=== PATIENT | male | born 1935 | race Caucasian/White ===

== ENCOUNTER 2018-08-29 12:12 | Emergency (ER) | payer SELFPAY ==
[~2018-08-29] VITALS: Ht 170.2 cm; Wt 59.0 kg
[~2018-08-29 12:12] MED LIST: CHERATUSSIN AC 15 ML PO
[2018-08-29 12:21] VITALS: Ht 170.2 cm; Wt 59.0 kg
[2018-08-29 14:38] VITALS: BP 164/73
== END 2018-08-29 14:38 | disposition home or self-care (01) ==
LOC: ED 12:12
DX: L89.019 Pressure ulcer of right elbow, unspecified stage (principal); I10 Essential (primary) hypertension
CPT/HCPCS: 90715; Q0092

== ENCOUNTER 2018-12-07 19:42 | Inpatient (IN) | payer MEDICAID ==
[~2018-12-07] VITALS: Ht 172.7 cm; Wt 45.8 kg
[2018-12-07 20:09] VITALS: Ht 172.7 cm; Wt 45.8 kg
--- NOTE | 2018-12-07 20:12 | NUR ---
PT BIB [facility] FOR EVAL OF DIARRHEA, ANOREXIA AND INCREASED ALOC X2 DAYS, PER MEDIC REPORT; ON ARRIVAL, PT AWAKE, GCS 13 (E4 V4 M5), PERRL, RESP E/U, ABDOMEN SOFT/NONTENDER/NONDISTENDED, SKIN WARM, DRY-APPEARING, R ELBOW ABRASION NOTED. VSS ON CM AND PULSE OX. STRAIGHT CATHED FOR URINE, 20 ML CLOUDY YELLOW OUTPUT. PT'S SON PRESENT ON ARRIVAL AND IS A POOR HISTORIAN UNABLE TO DESCRIBE PT'S MEDICAL HX OR BASELINE. STS PT HAS BEEN UNABLE TO TALK X4 MONTHS. STS PT LIVES WITH DAUGHTER. PER MEDIC, PT TAKING UNKNOWN ABX FOR R ELBOW ABRASION.
--- NOTE | 2018-12-07 20:31 | NUR ---
DR CARREON AT BEDSIDE FOR MSE
--- NOTE | 2018-12-07 20:53 | NUR ---
LAB AT BED SIDE. PT VITAL SIGNS STABLE. RESPIRATIONS EVEN AND UNLABORED. NO ACUTE DISTRESS NOTED.
[2018-12-07 21:07] LABS: microscopic required? YES; urine erythrocyte TRACE (NEGATIVE)
[2018-12-07 21:10] LABS: BASOPHIL % 0.5 % (0-2); PLATELET COUNT 152 x10^3mcL (130-400); RED CELL DISTRIBUTION WIDTH 14.2 % (11.5-14.5)
[2018-12-07 21:22] LABS: CALCIUM 7.6 mg/dL (8.5-10.1); CARBON DIOXIDE 26.6 mmol/L (21-32); CHLORIDE SERUM 107 mmol/L (98-107); CREATININE SERUM 0.7 mg/dL (0.7-1.3); GLUCOSE SERUM 88 mg/dL (74-106); POTASSIUM SERUM 3.7 mmol/L (3.5-5.1); SODIUM SERUM 142 mmol/L (136-145)
[2018-12-07 21:26] LABS: ALKALINE PHOSPHATASE 96 U/L (46-116); ALT/SGPT 18 U/L (16-63); AST/SGOT 15 U/L (15-37); BILIRUBIN TOTAL 0.3 mg/dL (0.20-1.00)
[2018-12-07 21:28] LABS: ALBUMIN 2.3 g/dL (3.4-5.0); TOTAL PROTEIN, SERUM 5.8 g/dL (6.4-8.2)
--- NOTE | 2018-12-07 22:24 | NUR ---
PT AWAKE AND SPEAKING INCOHERENTLY. VITAL SIGNS STABLE. RESPIRATIONS EVEN AND UNLABORED. NO ACUTE DISTRESS NOTED. FAMILY AT BEDISDE.
--- NOTE | 2018-12-07 23:43 | NUR ---
REPORT GIVEN TO BARBARA ON MST FOR CONTIUNATION OF CARE.
[2018-12-08 00:21] VITALS: BP 145/78
--- NOTE | 2018-12-08 00:36 | NUR ---
RECEIVED FROM ER, TRANSPORTED VIA [facility]. AWAKE, TRACTS, MOSTLY NONVERBAL. SPEECH IS INCOMPREHENSIBLE. BREATHING UNLABORED. LUNG SOUNDS DIMINISHED TO BASES. APPEARS THIN. SKIN ALTERATIONS PHOTODOCUMENTED, WOUNDS TO RIGHT ELBOW, SLIGHT BLEEDING NOTED TO WOUND. SWAB OF WOUND DONE ORDERED. PLACED ON AIR MATTRESS. HOB ELEVATED 30 DEG. SALINE LOCK TO LEFT FOREARM. DAUGHTER ACCOMPANIED PT ON ADMISSION TO UNIT. ADMISSION HISTORY AND ASSESSMENT DONE. ENDORSED TO NURSE JIMENEZ.
--- NOTE | 2018-12-08 02:00 | NUR ---
PT RESTING COMFORTABLY IN BED. NO ACUTE DISTRESS NOTED. EVEN AND UNLABORED RESPIRATIONS ON RA. MEDSURG PT. IV PATENT AND INTACT RUNNING FLUIDS PER EMAR. WOUNDS TO R ELBOW CLEANED, THERAHONEY APPLIED AND DRESSED PER ORDER, CDI. PT INCONTINENT WITH BLOOD TINGED URINE NOTED, CLEANED PT AND CHANGED GOWN WITH ENGRAVER PANTOGRAPH. PT IN SEMIFETAL POSITION ON LEFT SIDE. PILLOWS APPLIED BETWEEN BLE AND R ELBOW. WILL TURN PT Q2HRS AND NEEDED. BED IN LOWEST POSITION. SIDE RAILS UPX2. CALL LIGHT WITHIN REACH. WILL CONTINUE TO MONITOR.
[2018-12-08 02:56] LABS: CHOLESTEROL/HDL RATIO 3.7; PHOSPHOROUS 2.7 mg/dL (2.5-4.9)
[2018-12-08 03:06] LABS: FREE T4 1.13 ng/dL (0.76-1.46); FREE THYROXINE INDEX 1.9 ug/dL (1.4-4.5); T4(THYROXINE) 5.5 ug/dL (4.7-13.3)
[2018-12-08 03:25] LABS: T3 TOTAL 0.7 ng/mL
[2018-12-08 05:39] VITALS: BP 129/67
[2018-12-08 06:22] LABS: BASOPHIL % 0.2 % (0-2); PLATELET COUNT 139 x10^3mcL (130-400); RED CELL DISTRIBUTION WIDTH 13.9 % (11.5-14.5)
--- NOTE | 2018-12-08 06:29 | NUR ---
PT SLEPT COMFORTABLY IN INTERVALS THROUGHOUT THE SHIFT. NO ACUTE CHANGES NOTED. ALL NEEDS TENDED TO AND MET. ALL SCHEDULED MEDICATIONS GIVEN. WOUND CARE TO RIGHT ELBOW DONE. IV PATENT AND INTACT RUNNING FLUIDS PER EMAR. BED IN LOWEST POSITION. AIR MATTRESS IN USE. SIDE RAILS UPX2. CALL LIGHT WITHIN REACH. WILL ENDORSE TO ONCOMING SHIFT.
[2018-12-08 06:45] LABS: CALCIUM 7.4 mg/dL (8.5-10.1); CARBON DIOXIDE 27.4 mmol/L (21-32); CHLORIDE SERUM 107 mmol/L (98-107); CREATININE SERUM 0.6 mg/dL (0.7-1.3); GLUCOSE SERUM 64 mg/dL (74-106); MAGNESIUM 1.9 mg/dL (1.8-2.4); PHOSPHOROUS 2.5 mg/dL (2.5-4.9); POTASSIUM SERUM 3.9 mmol/L (3.5-5.1); SODIUM SERUM 142 mmol/L (136-145)
--- NOTE | 2018-12-08 07:18 | NUR ---
RECIEVED PT FROM FUND ACCOUNTING MANAGER NURSE. PT IN BED SLEEPING, AROUSABLE, RESP E/U ON RA. NO SIGNS OF ACUTE DISTRESS NOTED AT THIS TIME. IV TO LFA W/ NO SIGNS OF INFILTRATION, IVF INFUSING WELL. DRESSING TO RUE CDI. BED IN LOWEST POSITION AND CALL LIGHT WITHIN REACH. WILL CONTINUE TO MONITOR.
[2018-12-08 08:20] VITALS: BP 128/66
--- NOTE | 2018-12-08 11:26 | NUR ---
WOUND CARE EVALUATION NOTE: REASON FOR EVALUATION: LOW JESSICA SCORE AND RIGHT ELBOW WOUND SKIN ASSESSMENT DONE WITH PRIMARY RN WITH THIS 83 Y/O MALE PT ADMITTED TO [facility] [place] WITH INITIAL DX AMS. PAST MEDICAL HX INCLUDES HTN, DM. ALL ABOVE INFORMATION OBTAINED FROM ADMISSION H&P. AND DAUGHTER, MARTIN, WHO IS AAX4. PT ADMITTED WITH PRESSURE ULCER TO RIGHT ELBOW AND RIGHT LATERAL HEEL. PT IS AWAKE. SKIN IS WARM AND DRY, BILATERAL UPPER EXTREMITIES CONTRACTURES WITH LIMITED ROM. BLE FEW HAIR GROWTH, NO EDEMA. DORSAL PEDAL PULSES PRESENT AND NORMAL. CAPILLARY REFILLED < 2 SEC. X 10 TOES. INCONTINENT OF BOWEL AND BLADDER. PLAN OF CARE AND WOUND CARE TEACHING TO DAUGHTER, SHE VERBALIZES UNDERSTANDING. POC DISCUSSED WITH PRIMARY RN INTEGUMENTARY: -RIGHT FOREARM DRY MULTIPLE DRY SCABS WITH LARGEST TOWARD AC AREA 1.5X1.5CM 0.5CM INDURATION -PRESSURE ULCER UN-STAGEABLE TO RIGHT ELBOW, 2X2CM DEPTH UTD, WOUND BED 100% YELLOW SLOUGH COVERED, MOIST, NO ODOR, SURROUNDING REDNESS INDICATED FURTHER DAMAGE, [place] WOUND SKIN DRY SCALY WITH DRY SCABS -PRESSURE ULCER DTI TO RIGHT LATERAL HEEL 0.5X1.5CM 100% MAROON COLOR, PERIWOUND SKIN DRY AND SCALY -OLD HEALED SCAR TO RIGHT BUTTOCK/ISCHIUM -BLANCHABLE REDNESS TO SCAPULAS, HIPS AND SACROCOCCYX RECOMMENDATIONS: -KEEP SKIN DRY AND CLEAN AT ALL TIMES, PLEASE CHECK Q2H AND PRN FOR INCONTINENCY OF BOWEL AND BLADDER. - CLEANSE RIGHT ELBOW WITH WOUND CLEANSING SOLUTION AND APPLY THERAHONEY COVER WITH DRY DRESSING QD AND PRN IF SOILING -APPLY FORM DRESSING TO RIGHT LATERAL HEEL, SCAPULAS, HIPS AND SACROCOCCYX Q7 DAYS AND PRN IF SOILING PREVENTION -APPLY HEEL RAISER TO RIGHT HEEL AT ALL TIMES -OFFLOAD BILATERAL HEELS BY PLACING PILLOWS UNDER CALVES UNLESS OTHERWISE CONTRAINDICATED -PRESSURE REDISTRIBUTION SURFACE THERAPY -TURN AND REPOSITION Q2H, OFFLOAD RIGHT ELBOW, SACRALCOCCYX AND HIPS BY TURNING RIGHT AND LEFT -CONTINUE TO FOLLOW RD RECOMMENDATIONS ALL ABOVE RECOMMENDATIONS DISCUSSED WITH PRIMARY RN. WILL FOLLOW UP PT Q7-10 DAYS. PLEASE CONTACT WOUND CARE NURSE FOR ANY QUESTION AND CHANGE OF WOUND CONDITION.
[2018-12-08 11:44] VITALS: BP 126/69
--- NOTE | 2018-12-08 12:55 | NUR ---
PT IN BED SLEEPING, AROUSABLE, RESP E/U ON RA. NO SIGNS OF ACUTE DISTRESS NOTED. BED IN LOWEST POSITION AND CALL LIGHT WITHIN REACH. WILL CONTINUE TO MONITOR.
--- NOTE | 2018-12-08 14:38 | NUR ---
Discount pharmacy card and list to low cost medical clinics given to patient by Lisa Mathews.
[2018-12-08 15:53] VITALS: BP 146/66
--- NOTE | 2018-12-08 15:54 | NUR ---
PT WAS SEEN FOR DYSPHAGIA. PT WAS ABLE TO SAFELY SWALLOW PUREE DIET WITH HONEY THICK LIQUID. PT HAD COUGH FOR THIN LIQUID. RECOMMENDATION PUREE DIET WITH HONEY THICK LIQUID SMALL BITES AND SIPS ONLY. 1:1 SUPERVISION.
--- NOTE | 2018-12-08 17:35 | NUR ---
PT RESTING IN BED, RESP E/U ON RA. NO ACUTE DISTRESS OBSERVED AT THIS TIME. IV TO RFA W/ NO SIGNS OF INFILTRATION, IVF INFUSING WELL. DRESSING TO R ELBOW CDI, AIR MATTRESS IN PLACE. BED IN LOWEST POSITION AND CALL LIGHT WITHIN REACH. WILL ENDORSE TO ONCOMING NURSE.
--- NOTE | 2018-12-08 19:10 | NUR ---
RECIEVED PT FROM PREVIOUS SHIFT NURSE. PT AOX4
--- NOTE | 2018-12-08 19:10 | NUR ---
RECEIVED PT FROM PREVIOUS SHIFT NURSE. PT NONVERBAL, UNABLE TO FOLLOW COMMANDS. MED SURG PT, DENIES CP/PRESSURE. LUNG SOUNDS DIMINISHED, NO SOB/DIFFICULTY BREATHING NOTED. WOUNDS TO R. ELBOW, DSG CDI, SCAB TO RFA, BLIND HANGER, SCAB TO R. HEEL. IV TO LFA, INTACT AND PATENT. BED IN LOWEST POSITION. CALL LIGHT WITHIN REACH. WILL CONTINUE TO MONITOR.
[2018-12-08 19:24] VITALS: BP 137/64
[2018-12-08 23:46] LABS: BASOPHIL % 0.7 % (0-2); PLATELET COUNT 136 x10^3mcL (130-400); RED CELL DISTRIBUTION WIDTH 14.1 % (11.5-14.5)
[2018-12-08 23:47] LABS: CALCIUM 7.8 mg/dL (8.5-10.1); CARBON DIOXIDE 26.4 mmol/L (21-32); CHLORIDE SERUM 105 mmol/L (98-107); CREATININE SERUM 0.6 mg/dL (0.7-1.3); GLUCOSE SERUM 114 mg/dL (74-106); POTASSIUM SERUM 3.9 mmol/L (3.5-5.1); SODIUM SERUM 139 mmol/L (136-145)
--- NOTE | 2018-12-09 01:11 | NUR ---
PT RESTING IN BED. RR EVEN AND UNLABORED. IN NO ACUTE DISTRESS. CALL LIGHT WITHIN REACH. BED IN LOWEST POSITION. WILL CONTINUE TO MONITOR.
[2018-12-09 06:28] VITALS: BP 130/52
--- NOTE | 2018-12-09 07:30 | NUR ---
PATIENT AWAKE BUT LETHARGIC; NON VERBAL. NO INDICATION OF PAIN, NAUSEA/VOMITING OR SHORTNESS OF BREATH. IVF D5 1/2 NS AT 75 CC/HR VIA IV SITE AT [facility]. TOTAL CARE PROVIDED TO THE PATIENT. CALL LIGHT WITHIN REACH. SIDE RAILS UP X3. BED IS AT LOWEST POSITION. ALARM IS ON. ISOGEL MATTRESS IN PLACE.
[2018-12-09 08:17] VITALS: BP 137/61
--- NOTE | 2018-12-09 10:15 | NUR ---
DR. WALKER AND THE TEAM WERE MAKING ROUND TO SEE THE PATIENT.
[2018-12-09 11:11] LABS: BASOPHIL % 0.3 % (0-2); PLATELET COUNT 140 x10^3mcL (130-400); RED CELL DISTRIBUTION WIDTH 14.1 % (11.5-14.5)
[2018-12-09 11:22] LABS: CALCIUM 8.1 mg/dL (8.5-10.1); CARBON DIOXIDE 30.9 mmol/L (21-32); CHLORIDE SERUM 106 mmol/L (98-107); CREATININE SERUM 0.7 mg/dL (0.7-1.3); GLUCOSE SERUM 112 mg/dL (74-106); POTASSIUM SERUM 3.5 mmol/L (3.5-5.1); SODIUM SERUM 142 mmol/L (136-145)
--- NOTE | 2018-12-09 13:47 | NUR ---
Initial Nutrition Assessment: 243/A RAFI GARECS HR Dx: general weakness, UTI PMHx: Arthritis PSHx: None Labs: BG 114H, WBC 4.2L Meds: Rocephin, zofran Diet: Puree with honey thick liquid PO Intake: not documented Ht: 172.72 cm (68") Wt: 45.8 kg (101#) BMI: 15.4 kg/m2 (underweight) Bed scale: 45.6 kg IBW: 154# (70 kg) %IBW: 66 UBW: unable to access Age: 83/M Food Allergies: NKFA Skin: R elbow wound w/ dressing, scabs to RUE Jordan: 13 Edema: none GI: diarrhea Last BM: 12/08 Per H&P, Pt is a 83 yoM with no significant PMH who came with a cc of "not eating" since 3 days. Pt has a history progressive neurological decline. RDN Visit (12/09): Patient was not alert and was not in a state to answer any questions, was lethargic. Per LELO Valencia, pt ate 40% breakfast this morning and does not have any N/V/D/C at this time. FNS received consult for 'severe malnutrition' on 12/08 Problem with: N/V/D/C: none per LELO Valencia Problems with: Chewing/Swallowing: on puree diet Current appetite: unable to access Recent wt change: unable to access %wt change: n/a Vitamin/Supplement use: unable to access Special diet at home: unable to access Physical activity: unable to access Nutrition education given: not possible at this time Food-drug interactions: none Education given: n/a Estimated Nutritional Needs Based on actual body weight 45.8 kg Energy: 4332-8147 kcal/d (35-40 kcal/kg) Protein: 55-64 g/d (1.2-1.4 g/kg) - preserve LBM Fluid: 7549-4340 ml/d (1 ml/kcal) or per doctor Nutrition Diagnosis 1. Malnutrition related to poor PO as evidenced by BMI 15.4 kg/m2 2. Inadequate oral intake related to possible poor appetite as evidenced by PO <75% per RN. Intervention 1. Puree diet with honey thick liquid. 2. Recommend Ensure Pudding BID. Discussed recommendations with Dr. Cristhian Foster. Monitor/Evaluate Goal: PO intake at least 75% of estimated needs Monitor: PO intake, Labs, GI function F/U in 2-3 days as high risk
--- NOTE | 2018-12-09 13:48 | NUR ---
1. Puree diet with honey thick liquid. 2. Recommend Ensure Pudding BID. Discussed recommendations with Dr. Cristhian Foster.
[2018-12-09 17:02] VITALS: BP 140/72
--- NOTE | 2018-12-09 17:47 | NUR ---
PATIENT WAS GIVEN A BED BATH. LINEN AND GOWN CHANGED. OPTIFOAM APPLIED TO SACRAL AREA FOR PROPHYLAXIS. THE WOUNDS TO RIGHT ELBOW WERE CLEANSED WITH WOUND CLEANSER, PATTED DRY; THERAHONEY APPLIED BEFORE NEW OPTIFOAM APPLIED.
--- NOTE | 2018-12-09 17:50 | NUR ---
JUST RECEIVED ORDER TO INSERT NGT FOR THE PATIENT. HOWEVER, PATIENT JUST HAD PUREE DIET FOR DINNER. DR. TORRES WAS CALLED AND INFORMED OF THAT. DOCTOR AGREED TO FOR THE PATIENT TO HAVE NGT INSERTED LATER DURING NIGHT TIME SO THAT PATIENT DOES NOT VOMIT FOOD JUST ATE NOW.
--- NOTE | 2018-12-09 18:42 | NUR ---
TOTAL CARE PROVIDED TO THE PATIENT. PATIENT HAS BEEN TURNED Q2HR/PRN IN BED THROUGHOUT THE SHIFT. LOW AIR LOSS MATTRESS IN USE.
--- NOTE | 2018-12-09 19:30 | NUR ---
PT IS NON-VERBAL AND UNABLE TO FOLLOW COMMAND, PT ONLY GRUNTS AT TIMES. MED SURG. NO SIGN OF DISTRESS OR PAIN NOTED. PULSES ARE PRESENT. NO EDEMA NOTED. LULNGS CLEAR IN ALL FEILDS. ON RA. NO SIGN OF RESP DISTRESS. BOWEL SOUNDS PRESENT X4. ABD FLAT AND SOFT. INCONTINENT WITH URINE. SCATTERED SCABS NOTED ON BUE. 3 R ELBOW CIRCULAR WOUNDS ARE PROTECTED WITH AN ISLAND DRESSING. NO DRAINAGE NOTED, DRESSING CLEAN AND INTACT. OPTIFOAM ON COCCYX FOR PROTECTION IS IN PLACE. PT ON AN AIR MATTRESS. REPOSITIONED TO HIS RIGHT SIDE. IV ON LAF INTACT AND PATENT. BED IS AT LOWEST SETTING. CALL LIGHT WITHIN REACH. WILL CONTINUE TO MONTIOR.
[2018-12-09 21:29] VITALS: BP 155/76
--- NOTE | 2018-12-09 22:52 | NUR ---
NG TUBE WAS INSERTED PER ORDER. 16F WAS INSERTED ON R NARE. PT TOLERATED WELL. SECURED WITH TAPE ON THE NOSE AND TUBE WAS TURNED OFF TO PT WITH THE AKILAH VALVE. MD BURTON WAS MADE AWARE. ALSO REQUESTED MD FOR A KUB TO VERIFY PLACEMENT. WILL CONTINUE TO PHILL.
--- NOTE | 2018-12-10 00:15 | NUR ---
RADIOLOGY AT BEDSIDE TO PREFORM KUB. TUBE APPEARS TO BE COILED ON THE IMAGE. BLOOD NOTED ON R ELBOW SCAB. SCAB WAS NOTED TO BED REMOVED AND DRESSING WAS NO LONGER INTACT. PRESSURE WAS PLACED WITH A 4x4 AND ANOTHER ISLAND DRESSING WAS PLACED, DRESSING WAS THEN COVERED WITH KELRIX WRAPPING TO PROVIDED GENTLE PRESSURE TO STOP THE BLEEDING. EBL WAS ABOUT 5CC. PT WAS CLEANED AND NEW LINEN AND GOWN WAS PROVIDED. NGT TUBE WAS REINSERTED AND RADIOLOGY WAS CALLED TO COMPLETE THE KUB.
--- NOTE | 2018-12-10 00:40 | NUR ---
RADIOLOGY AT BEDSIDE. KUB WAS OBTAINED AND NG TUBE NO LONGER APPEARS COILED. NGT WAS SECURED TO R NARE AND SECURED TO GOWN. PT MADE COMFOTABLE. WILL CONTINUE TO MONTIOR.
[2018-12-10 05:08] VITALS: BP 155/73
[2018-12-10 06:13] LABS: BASOPHIL % 0.2 % (0-2); PLATELET COUNT 154 x10^3mcL (130-400); RED CELL DISTRIBUTION WIDTH 13.8 % (11.5-14.5)
--- NOTE | 2018-12-10 06:14 | NUR ---
PT IS RESTING IN BED. NO SIGN OF DISTRESS NOTED. DRESSING ON R ELBOW IS CLEAN AND INTACT. NO BLEEDING NOTED. NGT ON R NARE IS INTACT. NO ACUTE EVENT OCCURED AT [facility]. BED IS AT LOWEST SETTING. CALL LIGHT WITHIN REACH. WILL ENDORSE TO AM NURSE.
[2018-12-10 06:30] LABS: CALCIUM 7.8 mg/dL (8.5-10.1); CARBON DIOXIDE 29.4 mmol/L (21-32); CHLORIDE SERUM 105 mmol/L (98-107); CREATININE SERUM 0.6 mg/dL (0.7-1.3); GLUCOSE SERUM 97 mg/dL (74-106); POTASSIUM SERUM 3.4 mmol/L (3.5-5.1); SODIUM SERUM 141 mmol/L (136-145)
--- NOTE | 2018-12-10 07:00 | NUR ---
RECIEVED PT RESTING IN BED WITH NO S/SOF PAIN, DISTRESS, OR SOB. PT NONVERBAL WITH EYES OPEN. D5-45% NS RUNNING AT 75ML/HR IN LFA, INTACT AND PATENT WITH NO REDNESS OR INFLAMMATION NOTED.NGT IN PLACE 16 KEN[address] IN RIGHT NARE. ALL CARES WILL BE CARRIED OUT. SAFETY PRECAUTIONS IN PLACE, CALL LIGHT WITHIN REACH, WILL MONITOR.
[2018-12-10 09:09] VITALS: BP 160/80
--- NOTE | 2018-12-10 10:00 | NUR ---
PT STABLE AT THIS TIME RESTING IN BED. SKIN KEPT CLEAN AND DRY AND PT REPOSITIONED Q2 HOURS. NO DISTRESS NOTED. SAFETY PRECAUTIONS IN PLACE, CALL LIGHT WITHIN REACH, WILL MONITOR.
--- NOTE | 2018-12-10 13:49 | NUR ---
PT STILL STABLE WITH NO S/S OF DISTRESS. ALL CARES CARRIED OUT. SAFETY PREC IN PLACE, CALL LIGHT WITHIN REACH, WILL CONT TO MONITOR.
[2018-12-10 17:06] VITALS: BP 133/67
--- NOTE | 2018-12-10 17:43 | NUR ---
NG TUBE FEEDING STARTED PER MD ORDER. NO RESIDUAL NOTED. WILL CONT TO MONITOR.
--- NOTE | 2018-12-10 18:11 | NUR ---
PT STABLE AT THIS TIME IN BED RESTING. FAMILY AT BEDSIDE. NO S/S OF ANY DISTRESS. JEVITY 1.2 RUNNING AT 10ML/HR WITH 60ML H2O FLUSHES EVERY 2 HOURS. NO RESIDUAL NOTED, PT TOLERATING FEEDING WELL. ASPIRATION PRECAUTIONS IN PLACE. IV TO LFA INTACT AND PATENT WITH NO REDNESS OR INFLAMMATION NOTED. VS WNL. SAFETY PRECAUTIONS IN PLACE, CALL LIGHT WITHIN REACH, WILL ENDORSE CARE TO NIGHT NURSE.
--- NOTE | 2018-12-10 19:30 | NUR ---
RECIEVED PATIENT AT START OF SHIFT, NONVERBAL, UNABLE TO ASSESS ORIENTATION. PATIENT DOES NOT FOLLOW COMMANDS. MED-SURG. NG TUBE IN PLACE TO RIGHT NARE INFUSING JEVITY AT 10 ML/HR. BS ACTIVE. LUNGS CTAB. NO SOB ON RA. RIGHT ARM IS CONTRACTED AND BENT, SUPPORTED WITH PILLOW. DRESSING OVER RIGHT ELBOW CLEAND DRY INTACT. ECCHYMOSIS NOTED ON RIGHT ARM WELL. OPTIFOAM IN PLACE TO SACRUM AND RIGHT HEEL. BONY PROMININCES SUPPOSRTED WITH PILLOWS. PATIENT ON LEFT SIDE. AIR MATTRESS IN PLACE. WILL REPOSTION Q 2 HRS. IV TO LFA SALINE LOCKED AND PATENT. BED LOCKED AND IN LOWEST POSIITON. CALL LIGHT AND BEDSIDE TABLE WITHIN REACH, BED ALARM ON.
[2018-12-10 21:09] VITALS: BP 145/74
--- NOTE | 2018-12-10 21:30 | NUR ---
PATIENT REPOSITIONED, PILLOWS PLACED UNDER BONY PROMININCES.
--- NOTE | 2018-12-10 23:30 | NUR ---
PATIENT REPOSITIONED, PILLOWS PLACED UNDER BONY PROMININCES.
--- NOTE | 2018-12-11 | NUR ---
TUBE FEEDING INCREASED TO 20 MLS/ HR AFTER GASTRIC RESIDUAL OF 7 CONFIRMED.
--- NOTE | 2018-12-11 01:30 | NUR ---
PATIENT REPOSITIONED AGAIN, AND CHANGED AND CLEANED.
--- NOTE | 2018-12-11 03:45 | NUR ---
IV TO LFA IS LEAKING. IV REMOVED WITH CATHETER INTACT. NEW 24 G PLACED ON RH. INFUSING LEVAQUIN PER EMAR WELL.
--- NOTE | 2018-12-11 04:00 | NUR ---
PATIENT HAD BM. PATIENT CLEANED. NEW OPTIFOAM APPLIED TO SACRUM. REPOSITIONED WITH PILLOWS SUPPORTING BONY PROMININCES.
[2018-12-11 04:53] VITALS: BP 116/68
--- NOTE | 2018-12-11 06:14 | NUR ---
PATIENT SLEPT WELL THROUGH THE NIGHT. TUBE FEED INFUSING FROM NG TUBE AT 20/HR. GASTRIC RESIDUAL 5 MLS, REPLACED. IV TO RH IS SALINE LOCKED AND PATENT. PATIENT REPOSITIONED. ASPIRATION PRECAUTIONS MAINTAINED THROUGH OUT SHIFT. CALL LIGHT AND BEDSIDE TABLE WITHIN REACH. BED ALARM ON. WILL ENDORSE CARE TO DAYSHIFT NURSE.
--- NOTE | 2018-12-11 07:05 | NUR ---
RECIEVED PT FROM NIGHT NURSE. PT IS LAYING DOWN IN BED WITH HOB UP RESTING WITH EYES CLOSED. PT LOOKS TO BE IN NO ACUTE DISTRESS AND SHOWS NO S/S OF PAIN. RESPIRATIONS EVEN AND UNLABORED ON ROOM AIR. TUBE FEEDING GOING AT 20ML/HR, 35 ML OF RESIDUAL NOTED, RESIDUAL RETURNED TO PT. IV SITE PATENT WITH NO SIGNS OF ERYTHEMA OR SWELLING. NG TUBE TO NARES IS PATENT. BED IN LOWEST POSITION, CALL LIGHT WITHIN REACH. WILL CONITNUE TO MONITOR.
[2018-12-11 07:16] LABS: BASOPHIL % 0.3 % (0-2); PLATELET COUNT 144 x10^3mcL (130-400)
[2018-12-11 07:26] LABS: CALCIUM 8.1 mg/dL (8.5-10.1); CARBON DIOXIDE 31.4 mmol/L (21-32); CHLORIDE SERUM 105 mmol/L (98-107); CREATININE SERUM 0.6 mg/dL (0.7-1.3); GLUCOSE SERUM 79 mg/dL (74-106); POTASSIUM SERUM 3.7 mmol/L (3.5-5.1); SODIUM SERUM 141 mmol/L (136-145)
[2018-12-11 07:55] VITALS: BP 121/59
--- NOTE | 2018-12-11 08:26 | NUR ---
ADJUSTED TUBE FEEDING BY 10ML/HR TO 30ML/HR. RESIDUAL 35 ML. WILL CONTINUE TO MONITOR.
--- NOTE | 2018-12-11 11:00 | NUR ---
PROVIDED DRESSING CHANGES TO RIGHT ELBOW. 3 OPEN WOUNDS NOTED TO RIGHT ELBOW. BLOODY DRAINAGE NOTED. NO FOUL ODOR. NEW DRESSING APPLIED. DRESSING CDI, WILL CONTINUE TO MONITOR
[2018-12-11 12:21] VITALS: BP 128/66
--- NOTE | 2018-12-11 13:23 | NUR ---
1. Recommend increasing Jevity 1.2 @ 45 ml/hr, FWF 60 ml Q2H. This will provide 1300 kcal and 60g protein. This will meet >75% estimated calorie and protein needs of the patient. 2. CASHIER GAMBLING eval has been placed on the patient to re-evaluate swallowing ability. Discussed recommendations with TODD Crar.
--- NOTE | 2018-12-11 13:23 | NUR ---
Follow-up Nutrition Assessment: 243/A RAFI GARCES FU HR Dx: general weakness, UTI PMHx: Arthritis Labs: (12/11) BUN 5.0L, CREAT 0.6L, CA 8.1L, HGB 12.2L Meds: Aricept, Levaquin, sinemet, zofran Diet: Jevity 1.2 @ 30 ml/hr, FWF 60 ml Q2H, (12/10) - Puree w/ honey thick liquids PO Intake: (12/10) lunch 80%, breakfast 60%, (12/11) breakfast 50%, lunch 30%, dinner 20% Weights: (12/08) 45.8 kg, (12/11) 45 kg Skin: scattered scabs on BUE w no drainage, circular wounds x3 on R elbow Jordan: 13 I/Os: (12/10) (1993) Edema: none GI: Last BM: 12/09 RDN Visit (12/11): Patient was getting cleaned by the RN. Jevity 1.2 was running @ 30 ml/hr, FWF 60 ml Q6H. Per RN Jayla, pt is tolerating TF. Per progress note (12/10), family agreed on NG tube and refused PEG tube completely. Estimated Nutritional Needs Based on actual body weight 45.8 kg Energy: 9852-3023 kcal/d (35-40 kcal/kg) Protein: 55-64 g/d (1.2-1.4 g/kg) - preserve LBM Fluid: 1231-5741 ml/d (1 ml/kcal) or per doctor Nutrition Diagnosis 1. Malnutrition related to poor PO as evidenced by BMI 15.4 kg/m2. (ongoing) 2. Inadequate enteral nutrition infusion related to low TF rate as evidenced by current rate meeting <75% estimated calorie and protein needs. Intervention 1. Recommend increasing Jevity 1.2 @ 45 ml/hr, FWF 60 ml Q2H. This will provide 1300 kcal and 60g protein. This will meet >75% estimated calorie and protein needs of the patient. 2. PREDATORY ANIMAL EXTERMINATOR eval has been placed on the patient to re-evaluate swallowing ability. Discussed recommendations with DIRECTOR REGULATORY AGENCY Lilly. Monitor/Evaluate Goal: Have pt meet at least 75% of estimated needs Monitor: PO intake, Labs, GI function F/U in 2-3 days as high risk 12/13-
--- NOTE | 2018-12-11 13:45 | NUR ---
PT IS LAYING DOWN IN BED WITH HOB UP RESTING. PT LOOKS TO BE IN NO ACUTE DISTRESS AND LOOKS TO HAVE NO S/S OF PAIN AT THIS TIME. RESPRIATIONS EVEN AND UNLABORED ON ROOM AIR. TUBE FEEDING INFUSING. TURNED AND REPOSITONED PT, LEGS ELEVATED ON PILLOW AND PT ON AIR MATTRESS. FAMILY MEMBERS AT BEDSIDE. BED IN LOWEST POSITION, CALL LIGHT WITHIN REACH. WILL CONTINUE TO MONITOR
--- NOTE | 2018-12-11 16:10 | NUR ---
ADVANCED TUBE FEEDING ORDERED BY 10ML/HR TO MEET THE GOAL OF 40ML/HR. RESIDUAL CHECKED BEFORE ADVANCEMENT, RESIDUAL <5ML. RESIDUAL RETURNED TO PT. WILL CONTINUE TO MONITOR.
--- NOTE | 2018-12-11 17:15 | NUR ---
CHANGED TUBE FEEDING AND TUBING.
[2018-12-11 18:20] VITALS: BP 143/70
--- NOTE | 2018-12-11 18:52 | NUR ---
PT IS LAYING DOWN IN BED WITH HOB UP RESTING WITH EYES CLOSED. PT RESPONSIVE TO VERBAL STIMULI AND EASILY AROUSABLE. RESPIRATIONS EVEN AND UNLABORED ON ROOM AIR. NG TUBE TO RIGHT NARES INFUSING TUBE FEEDING 40ML/HR. IV SITE PATENT WITH NO SIGNS OF ERYTHEMA OR SWELLING WITH IV FLUIDS INFUSING. BED IN LOWEST POSITION. PT ON AIR MATTRESS. WILL CONTINUE TO MONITOR.
--- NOTE | 2018-12-11 18:57 | NUR ---
WILL ENDORSE TO ONCOMING SHIFT.
--- NOTE | 2018-12-11 19:25 | NUR ---
CARE ASSUMED FROM OUTGOING RN. PT RESTING COMFORTABLY IN BED. NO ACUTE DISTRESS NOTED. AWAKE, NONVERBAL. EVEN AND UNLABORED RESPIRATIONS ON RA. MEDSURG PT. IV PATENT AND INTACT. NGT IN PATENT AND INTACT RUNNING JEVITY 1.2 AT GOAL RATE OF 40ML/HR WITH 60ML FWF Q2HRS. BED IN LOWEST POSITION. AIR MATTRESS IN USE. SIDE RAILS UPX2. CALL LIGHT WITHIN REACH. WILL CONTINUE TO MONITOR.
[2018-12-11 21:09] VITALS: BP 146/64
--- NOTE | 2018-12-11 21:11 | NUR ---
CLEANED PT WITH SIZING MACHINE TENDER. REPOSITION PT. BLE ELEVATED WITH PILLOWS. BED IN LOWEST POSITION. AIR MATTRESS IN USE. CALL LIGHT WITHIN REACH. WILL CONTINUE TO MONITOR.
--- NOTE | 2018-12-12 00:24 | NUR ---
PT RESTING COMFORTABLY IN BED. NO ACUTE DISTRESS NOTED. EVEN AND UNLABORED RESPIRATIONS ON RA. NGT IN PLACE RUNNING TUBE FEEDING PER ORDER. IV PATENT AND INTACT. ASKED PT TO REPOSITION, PT REFUSING, MOANING NO. REDISTRIBUTED WEIGHT AROUND. BLE ELEVATED ON PILLOWS. DRESSING TO WOUNDS, CDI. BED IN LOWEST POSITION. AIR MATTRESS IN USE. SIDE RAILS UPX2. CALL LIGHT WITHIN REACH. WILL CONTINUE TO MONITOR.
--- NOTE | 2018-12-12 02:46 | NUR ---
ANTIBIOTICS RUNNING PER EMAR. NGT RESIDUAL VOLUME CHECKED, 10ML. RATE INCREASED TO GOAL RATE OF 45ML/HR WITH 60ML FWF Q2HRS. REPOSITIONED PT TO SUPINE POSITION. PT TOLERATED WELL. BED IN LOWEST POSITION. SIDE RAILS UPX2. CALL LIGHT WITHIN REACH. WILL CONTINUE TO MONITOR.
--- NOTE | 2018-12-12 04:41 | NUR ---
CLEANED PT WITH ADVERTISING ACCOUNT REPRESENTATIVE. REPOSITIONED PT TO LEFT SIDE. PILLOWS PLACED UNDER BLE AND OFFLOADING PRESSURE POINTS. PT TOLERATED WELL. WILL CONTINUE TO MONITOR.
[2018-12-12 04:59] VITALS: BP 108/57
--- NOTE | 2018-12-12 06:53 | NUR ---
PT SLEPT COMFORTABLY IN INTERVALS THROUGHOUT THE SHIFT. ALL NEEDS TENDED TO AND MET. ALL SCHEDULED MEDICATIONS GIVEN. TURNED AND REPOSITIONED PT Q2HRS AND PRN. NGT IN PLACE AND PATENT RUNNING JEVITY 1.2 AT GOAL RATE OF 45ML/HR WITH 60ML FWF Q2HRS. IV PATENT AND INTACT. PRESSURE POINTS OFFLOADED. BLE ELEVATED WITH PILLOWS. DRESSING TO WOUNDS CDI. OPTIFOAMS CDI. BED IN LOWEST POSITION. AIR MATTRESS IN USE. SIDE RAILS UPX2. CALL LIGHT WITHIN REACH. WILL ENDORSE TO ONCOMING SHIFT.
--- NOTE | 2018-12-12 07:20 | NUR ---
RECEIVED PT FROM NIGHT NURSE. PT IS LAYING DOWN IN BED WITH HOB UP RESTING. PT LOOKS TO BE IN NO ACUTE DISTRESS AND SHOWS NO S/S OF PAIN. RESPRIATIONS EVEN AND UNLABORED ON ROOM AIR. TUBE FEEDING INFUSING AT 45ML/HR TO NG TUBE TO RIGHT NARES, <5ML RESIDUAL AND RETURNED TO PT. IV SITE PATENT WITH NO SIGNS OF ERYTHEMA OR SWELLING. BED IN LOWEST POSITION, PT ON AIR MATTRESS. WILL CONTINUE TO MONITOR.
[2018-12-12 08:10] VITALS: BP 119/57
--- NOTE | 2018-12-12 11:00 | NUR ---
ERYTHEMA NOTED TO LEFT ELBOW AT HAILE PROMINENCE. GENERAL MAINTENANCE MECHANIC RICHAR AWARE, PICTURE IN CHART. OPTIFOAM PAD TO SITE, WILL CONTINUE TO MONITOR.
--- NOTE | 2018-12-12 11:00 | NUR ---
GAVE PT A BED BATH. PT TOLERATED WELL AND GAVE PT NEW GOWN AND BLANKETS. PT TALKING IN SMALL AMOUNTS AND SEEMS MORE RESPONSIVE. MADE PT COMFORTABLE IN BED. BED IN LOWEST POSITION, WILL CONTINUE TO MONITOR.
--- NOTE | 2018-12-12 12:00 | NUR ---
CARE CONFERENCE BETWEEN DR. CALLE, NP. MARTINEZ AND PATIENT'S FAMILY WAS HELD AT HOSPTIAL ANCILLARY ROOM AT THIS TIME. DISEASE PROCESS, PLAN OF CARE WAS EXPLANED AND DISCUSSED WITH FAMILY. PATIENT'S FAMILY IS AGREEABLE FOR HOSPICE.
--- NOTE | 2018-12-12 17:01 | NUR ---
PT WAS SEEN FOR DYSPHAGIA. PT WAS ABLE TO SAFELY SWLALOW PUREE DIET WITH HONEY THICK LIQUID WITHOUT S/S OF ASPIRATION. PT NEEDS REMINDER TO SWALLOW. RECOMMENDATION PUREE DIET WITH HONEY THICK LIQUID SMALL BITES AND SIPS ONLY 1:1 SUPERVISION.
--- NOTE | 2018-12-12 17:30 | NUR ---
DISCONTINUED NG TUBE ORDERED. PT TOLERATED WELL. SKIN INTACT AROUND RIGHT NARES. PT LOOKS TO BE IN NO ACUTE DISTRESS AT THIS TIME. FAMILY MEMBERS AT BEDSIDE AND STATED WILL ASSIST PT WITH EATING. WILL CONTINUE TO MONITOR.
--- NOTE | 2018-12-12 18:51 | NUR ---
PT IS LAYING DOWN IN BED WITH HOB UP RESTING. PT LOOKS TO BE IN NO ACUTE DISTRESS AT THIS TIME. PT ATE LARGE AMOUNT OF DINNER AND SEEMS TO HAVE AN APPETITE. RESPIRATIONS EVEN AND UNLABORED ON ROOM AIR. IV SITE PATENT WITH NO SIGNS OF ERYTHEMA OR SWELLING. BED IN LOWEST POSITION, CALL LIGHT WITHIN REACH. WILL CONTINUE TO MONITOR.
--- NOTE | 2018-12-12 19:15 | NUR ---
CARE ASSUMED FROM OUTGOING RN. PT RESTING COMFORTABLY IN BED. FAMILY AT BEDSIDE. NO ACUTE DISTRESS NOTED. EVEN AND UNLABORED RESPIRATIONS ON RA. MEDSURG PT. IV PATENT AND INTACT. DRESSING TO RIGHT ELBOW WOUNDS, CDI. AIR MATTRESS IN USE. BLE ELEVATED WITH PILLOWS. BED IN LOWEST POSITION. SIDE RAILS UPX2. CALL LIGHT WITHIN REACH. WILL CONTINUE TO MONITOR.
[2018-12-12 20:32] VITALS: BP 124/56
--- NOTE | 2018-12-13 00:29 | NUR ---
PT ASLEEP COMFORTABLY IN BED. NO ACUTE DISTRESS NOTED. EVEN AND UNLABORED RESPIRATIONS ON RA. IVL PATENT AND INTACT. WOUND DRESSING, CDI. BED IN LOWEST POSITION. AIR MATTRESS IN USE. BLE ELEVATED WITH PILLOWS. SIDE RAILS UPX2. HETAL LIGHT WITHIN REACH. WILL CONTINUE TO MONITOR.
[2018-12-13 05:30] VITALS: BP 109/58
[2018-12-13 06:42] LABS: BASOPHIL % 0.3 % (0-2); PLATELET COUNT 138 x10^3mcL (130-400); RED CELL DISTRIBUTION WIDTH 14.4 % (11.5-14.5)
--- NOTE | 2018-12-13 07:00 | NUR ---
PT SLEPT COMFORTABLY IN INTERVALS THROUGHOUT THE SHIFT. NO ACUTE CHANGES NOTED. ALL NEEDS TENDED TO AND MET. ALL SCHEDULED MEDICATIONS GIVEN. PT TOLERATED MEDICATIONS WITH APPLESAUCE. TURNED AND REPOSITIONED PT THROUGHOUT THE SHIFT. WOUND DRESSING AND OPTIFOAMS CDI. BED IN LOWEST POSITION. AIR MATTRESS IN USE. SIDE RAILS UPX2. CALL LIGHT WITHIN REACH. WILL ENDORSE TO ONCOMING SHIFT.
[2018-12-13 07:02] LABS: CALCIUM 7.9 mg/dL (8.5-10.1); CARBON DIOXIDE 33.2 mmol/L (21-32); CHLORIDE SERUM 106 mmol/L (98-107); CREATININE SERUM 0.6 mg/dL (0.7-1.3); GLUCOSE SERUM 68 mg/dL (74-106); POTASSIUM SERUM 4.1 mmol/L (3.5-5.1); SODIUM SERUM 143 mmol/L (136-145)
--- NOTE | 2018-12-13 07:05 | NUR ---
RECEIVED PT FROM NIGHT NURSE. PT IS LAYING DOWN IN BED WITH HOB UP RESTING. PT LOOKS TO BE IN NO ACUTE DISTRESS AT THIS TIME AND SHOWS NO S/S OF PAIN. RESPIRATIONS EVEN AND UNLABORED ON ROOM AIR. IV SITE PATENT WITH NO SIGNS OF ERYTHEMA OR SWELLING AND IS H/L. BED IN LOWEST POSITION, CALL LIGHT WITHIN REACH. WILL CONTINUE TO MONITOR.
[2018-12-13 08:08] VITALS: BP 134/67
--- NOTE | 2018-12-13 09:00 | NUR ---
WOUND CARE DRESSING CHANGE PREFORMED TO RIGHT ELBOW. WOUND IS HEALING, NO DRAINAGE NOTED, NO FOUL SMELL. NEW DRESSING CDI, PT LOOKS TO BE IN NO ACUTE DISTRESS AT THIS TIME. WILL CONTINUE TO MONITOR.
[2018-12-13 12:03] VITALS: BP 130/63
--- NOTE | 2018-12-13 13:00 | NUR ---
PT TOLERATING DIET WELL. PT LOOKS TO HAVE NO DIFFICULTY SWALLOWING AND SHOWS TO HAVE A GOOD APPETITE. PT EATING 100% OF MEALS. PT LOOKS TO BE IN NO ACUTE DISTTRESS AT THIS TIME. PT RESPONDING TO QUESTIONS WITH SINGLE WORDS. PT INCREASINGLY MORE AWAKE. WILL CONTINUE TO MONITOR.
[2018-12-13 16:15] VITALS: BP 127/69
--- NOTE | 2018-12-13 18:59 | NUR ---
PT IS LAYING DOWN IN BED WITH HOB UP RESTING. PT LOOKS TO BE IN NO ACUTE DISTRESS AT THIS TIME AND LOOKS TO HAVE S/S OF PAIN. IV SITE PATENT WITH NO SIGNS OF ERYTHEMA OR SWELLING WITH IV H/L. BED IN LOWEST POSITION, SCD PRESENT, DRESSING TO B/L ELBOWS INTACT. WILL ENDORSE TO ONCOMING SHIFT.
--- NOTE | 2018-12-13 19:10 | NUR ---
CARE ASSUMED FROM OUTGOING RN. PT RESTING COMFORTABLY IN BED. NO ACUTE DISTRESS NOTED. EVEN AND UNLABORED RESPIRATIONS ON RA. MEDSURG PT. IVL INTACT. DENIES ANY PAIN AT THIS TIME. WOUND DRESSING, CDI. AIR MATTRESS IN USE. PILLOW USED TO ELEVATE BLE. BED IN LOWEST POSITION. SIDE RAILS UPX2. CALL LIGHT WITHIN REACH. WILL CONTINUE TO MONITOR.
[2018-12-13 20:55] VITALS: BP 143/67
--- NOTE | 2018-12-14 00:12 | NUR ---
PT RESTING COMFORTABLY IN BED. NO ACUTE DISTRESS NOTED. REPOSITIONED PT TO THE RIGHT SIDE, PRESSURE POINTS OFFLOADED. WOUND DRESSING CDI. ASSISTED PT WITH SNACK, TOLERATED WELL. BED IN LOWEST POSITION. SIDE RAILS UPX2. CALL LIGHT WITHIN REACH. WILL CONTINUE TO MONITOR.
--- NOTE | 2018-12-14 06:00 | NUR ---
PT SLEPT COMFORTABLY IN INTERVALS THROUGHOUT THE SHIFT. NO ACUTE CHANGES NOTED. ALL NEEDS TENDED TO AND MET. ALL SCHEDULED MEDICATIONS GIVEN. TOLERATED SNACKS WELL. DRESSING CHANGED TO ELBOW WOUNDS. OPTIFOAM CHANGED, CDI. PICTURES TAKEN. REPOSITIONED PT. PRESSURE POINTS OFFLOADED. PILLOWS ELEVATED WITH PILLOW. AIR MATTRESS IN USE. BED IN LOWEST POSITION. SIDE RAILS UPX2. CALL LIGHT WITHIN REACH. WILL ENDORSE TO ONCOMING SHIFT.
[2018-12-14 06:17] VITALS: BP 131/71
[2018-12-14 06:57] LABS: BASOPHIL % 0.4 % (0-2); PLATELET COUNT 151 x10^3mcL (130-400); RED CELL DISTRIBUTION WIDTH 14.1 % (11.5-14.5)
[2018-12-14 07:07] LABS: CALCIUM 7.8 mg/dL (8.5-10.1); CARBON DIOXIDE 32.2 mmol/L (21-32); CHLORIDE SERUM 104 mmol/L (98-107); CREATININE SERUM 0.7 mg/dL (0.7-1.3); GLUCOSE SERUM 71 mg/dL (74-106); POTASSIUM SERUM 3.9 mmol/L (3.5-5.1); SODIUM SERUM 142 mmol/L (136-145)
[2018-12-14 07:31] VITALS: BP 115/56
--- NOTE | 2018-12-14 07:49 | NUR ---
AT 0720 - RECEIVED PATIENT FROM NIGHT NURSE. AWAKE, ALERT. UNABLE TO JENNIFER ORIENTATION AT THIS TIME. RESPIRATIONS REGULAR. IV SALINE LOCKED.
--- NOTE | 2018-12-14 09:04 | NUR ---
PATIENT HAS BEEN ABLE TO TOLERATE PUREE FOOD FROM BREAKFAST TRAY. HAS TAKEN PO MED SCHEDULED. NOTED MARKED RIGIDITY OF EXTREMETIES.
--- NOTE | 2018-12-14 10:58 | NUR ---
FAMILY AT BEDSIDE.
--- NOTE | 2018-12-14 14:16 | NUR ---
ISHAN ROLON FROM [facility] CAME TO EVALUATE PATIENT. SHE WILL SPEAK WITH FAMILY.
--- NOTE | 2018-12-14 14:47 | NUR ---
Follow-up Nutrition Assessment: (246-B) RAFI GARCES 83M Dx: General Weakness, UTI PMHx: Arthritis Labs: BG 71 L, Alb 2.3 L, Ca 7.8 L, Lipase 69 L, BNP 117.92 H Meds: Zofran Diet: Puree (honey thick liquids) PO Intake: ~71% Weights: 101# (12/08), bedscale 115# (12/07) I/Os: 680/0 (12/14) 740/1500 (12/13) 1185/0 (12/12) 300/3000 (12/11) Skin: R elbow wound as per photo, scabs BUE, optifoam R heel, pt on air mattress Jordan: 13 Edema: None noted GI: Abd soft, stool culture negative Last BM: 12/13 Note (12/14): Per H&P, pt noted w/ chief complaint AMS. Per CHIEF RISK OFFICER progress note, pt w/ new onset Alzheimer's/Parkinson's disease, P/U R elbow w/ staph aureus, severe malnutritoin, D/C planning w/ hospice. Per acls specialist note, P/U UTD R elbow (2x2cm, depth UTD), P/U DTI R lat heel (0.5x1.5cm). Visited pt bedside, pt uncommunicative, not oriented at this time. Noted pt no longer on TF, fair PO. Pt w/ ongoing malnutrition, will follow-up appropriately. Spoke w/ CHIEF RISK OFFICER Lilly regarding ONS, confirmed. Estimated Nutritional Needs Based on actual body weight (45.8 kg) Energy: 2260-0841 kcal/day (35-40 kcal/kg for wt gain) Protein: 55-69 g/day (1.2-1.5 g/kg to preserve LBM) Fluid: 7961-7595 mL/day (1 mL/kcal) or per MD Nutrition Diagnosis: 12/11: Malnutrition r/t poor PO AEB BMI 15.4 kg/m2. (ongoing) 12/11: Inadequate enteral nutriton infusion r/t low TF rate AEB current rate meeting <75% estimated calorie and protein needs. 12/14: Malnutrition r/t poor PO AEB BMI 15.4 kg/m2. (ongoing) Intervention: 1. Continue current Puree diet order, adv to Regular diet per MD and as pt tolerates 2. Add Evelio BID 3. Add Ensure High Protein BID b/w meals 4. Spoke w/ CHIEF RISK OFFICER Lilly regarding ONS, confirmed Monitor/Evaluate: Goal: Have pt meet at least 75% of estimated needs Monitor: PO intake, Labs, GI function F/U in 2-3 days as high risk 12/16-12/17
--- NOTE | 2018-12-14 14:47 | NUR ---
Recommednation(s): 1. Continue current Puree diet order, adv to Regular diet per MD and as pt tolerates 2. Add Evelio BID 3. Add Ensure High Protein BID b/w meals 4. Spoke w/ CHIEF ORTHOPTIST Lilly regarding ONS, confirmed
[2018-12-14 16:41] VITALS: BP 103/58
--- NOTE | 2018-12-14 18:32 | NUR ---
PATIENT AWAKE, ALERT, QUIET. WATCHING TV. VSS. AFEBRILE. PATIENT TOLERATING PURREED DIET WITH THICKENED LIQUIDS. INCONTINENT OF URINE. 1 BM TODAY. WILL ENDORSE CARE TO NIGHT NURSE.
--- NOTE | 2018-12-14 19:30 | NUR ---
RECIEVED PT FROM DAY NURSE. PT RESTING IN BED COMFORTABLY AT THIS TIME. NO S/S OF PAIN OR DISCOMFORT NOTED. A/O X1, ALERT TO PERSON ONLY. REOIRENTED. MED SURG PT. NO S/S OF CP OR VOMITTING. PALPABLE PULSES, NO EDEMA NOTED. BREATHING E/U ON RA. ABD SOFT AND ROUND. NO GRIMICE TO PALPATION. GENERALIZED WEAKNESS, REPOSITIONING Q2. TAWNYA IV, INTACT. BED AT LOWEST POSITION. CALL LIGHT WITHIN REACH. WILL CONTINUE TO MONITOR.
[2018-12-14 20:45] VITALS: BP 133/70
--- NOTE | 2018-12-15 | NUR ---
PT RESTING IN BED COMFORTABLY AT THIS TIME. NO S/S OF PAIN OR DISCOMFORT. BREATHING E/U ON RA. BED AT LOWEST POSITION. CALL LIGHT WITHIN REACH. WILL CONTINUE TO MONITOR.
[2018-12-15 05:10] VITALS: BP 162/86
--- NOTE | 2018-12-15 05:53 | NUR ---
PT BP 162/86. PAGED . WILL CONTINUE TO MONITOR.
--- NOTE | 2018-12-15 06:27 | NUR ---
PT RESTING IN BED COMFORTABLY. NO S/S OF PAIN OR DISCOMFORT AT THIS TIME. BREATHING E/U ON RA. ALL NEEDS AND CONCERNS ADDRESSED THIS SHIFT. BED AT LOWEST POSITION. CALL LIGHT WITHIN REACH. WILL ENDORSE TO DAY NURSE.
--- NOTE | 2018-12-15 07:40 | NUR ---
RECEIVED PT IN BED AWAKE AND ORIENTED X1 PERSON ONLY WITH GARBLED SPEECH. RESP EVEN AND UNLABORED WITH CLEAR BS BILAT. ABD SOFT, NONTENDER WITH ACTIVE BS. INCONTINENT OF B+B. NOTED WITH WOUND TO RT ELBOW WITH ISLAND DRSG IN PLACE CDI. PROTECTIVE FOAM DRSG TO SACRAL AREA LT ALBOWL, HIPS AND HEELS. ON LOW AIRLOSS MATTRESS WITH REPOSITIONING Q2HRS. CALL LIGTH IN REACH NEEDS ATTENDED TO.
[2018-12-15 07:52] VITALS: BP 106/72
[2018-12-15 07:54] VITALS: BP 140/77
[2018-12-15 11:30] VITALS: BP 140/77
--- NOTE | 2018-12-15 13:00 | NUR ---
DAUGHTER MARTIN CALLED REVIEWED D/C HOME ISNTRUCTIONS. MADE AWARE HOSPICE NURSE TO F/U WITH THEM AT HOME AND PROVIDE FURTHER DIETARY AND CARE INSTRUCTIONS. AWAITING CALL BACK FROM HOSPICE FOR G[facility]RA[facility]ER TIME.
--- NOTE | 2018-12-15 14:30 | NUR ---
DAUGHTER CALLED AND MADE AWARE THAT TRANSPORT WILL BE HERE BETWEEN [phone]. DAUGHTER NOTIFIED SHE WILL BE CALLED WHEN TRANSPORT IS HERE TO TAKE HER FATHER.
--- NOTE | 2018-12-15 16:04 | NUR ---
[facility] HERE TO [facility] PT TO TRANSPORT HIM BACK HOME UNDER HOSPICE CARE. REPORT GIVEN TO TRANSPORT TEAM AND PT LEFT HOSPITAL VIA [facility] WITH ALL PERSONAL BELONGING FREE OF ANY APPARENT DISTRESS.
== END 2018-12-15 16:19 | disposition hospice, home (50) | DRG 42 ==
LOC: ED 19:42 → MU 22:45
PROVIDERS: Emergency Medicine; General Practice; ADMIT Internal Medicine
DX: G20 Parkinson's disease (principal); E43 Unspecified severe protein-calorie malnutrition; G92 Toxic encephalopathy; G30.9 Alzheimer's disease, unspecified; E86.0 Dehydration; D64.9 Anemia, unspecified; L89.019 Pressure ulcer of right elbow, unspecified stage; F02.80 Dementia in other diseases classified elsewhere, unspecified severity, without behavioral disturbance, psychotic disturbance, mood disturbance, and anxiety; K52.9 Noninfective gastroenteritis and colitis, unspecified; N39.0 Urinary tract infection, site not specified; Z66 Do not resuscitate; Z68.1 Body mass index [BMI] 19.9 or less, adult
CPT/HCPCS: 83880; 84439; 87046; 87046-59; 92526-GN; 92610-GN; G0378; J0696; J1956; J7030; J7050; J7060; Q0092